=== PATIENT | male | born 1980 ===

== ENCOUNTER 2020-03-29 15:52 | Emergency (ER) | payer SELFPAY ==
--- NOTE | 2020-03-29 16:38 | Event Note ---
ED Screening Note Date of service: 03/29/20 Time: 16:37 ED Screening Note: Patient complains of urinary frequency, fatigue, and generalized body aches Sent here from [facility] due to elevated blood sugar History of diabetes, states he has not been on medication for 1 year Denies chest pain or shortness of breath This initial assessment/diagnostic orders/clinical plan/treatment(s) is/are subject to change based on patients health status, clinical progression and re- assessment by fellow clinical providers in the ED. Further treatment and workup at subsequent clinical providers discretion. Patient/guardian urged not to elope from the ED as their condition may be serious if not clinically assessed and managed. Initial orders include: Labs
[2020-03-29 17:45] LABS: Alanine Aminotransferase 18 units/L (7-56); Blood Urea Nitrogen 17 mg/dL (9-20); Calcium 9.3 mg/dL (8.4-10.2); Hemolysis Index 19
[2020-03-29 17:52] LABS: Basophils # (Auto) 0.1 K/mm3 (0.0-0.1); Basophils % (Auto) 0.7 % (0.0-1.8); Eosinophils # (Auto) 0.1 K/mm3 (0.0-0.4); Eosinophils % (Auto) 0.8 % (0.0-4.3); Hematocrit 48.3 % (35.5-45.6); Hemoglobin 15.9 gm/dl (11.8-15.2); Lymphocytes # (Auto) 2.1 K/mm3 (1.2-5.4); Lymphocytes % (Auto) 25.9 % (13.4-35.0); Mean Corpuscular HGB Conc 33 % (32-34); Mean Corpuscular Volume 84 fl (84-94); Monocytes # (Auto) 0.5 K/mm3 (0.0-0.8); Monocytes % (Auto) 5.6 % (0.0-7.3); Platelet Count 195 K/mm3 (140-440); Red Blood Count 5.75 M/mm3 (3.65-5.03); Red Cell Distribution Width 13.7 % (13.2-15.2)
[2020-03-29 17:58] LABS: BUN/Creatinine Ratio 24
[2020-03-30] MEDS ORDERED: SODIUM CHLORIDE 0.9% 1000 ML 1,000 ML IV ONE ×2 (01:42)
[2020-03-30] MEDS ORDERED: INSULIN REGULAR, HUMAN 100 UNIT/ML 3ML VIAL IV ONE (01:43)
--- NOTE | 2020-03-30 01:48 | Emergency Department Report ---
ED General Adult HPI - General Chief complaint: Hyperglycemia Stated complaint: HIGH BLOOD SUGAR Time Seen by Provider: 03/29/20 16:36 Source: patient Mode of arrival: Ambulatory Limitations: No Limitations - History of Present Illness Initial comments: 39-year-old male, history of hypertension and diabetes, presents to ED with elevated blood sugar. Patient states he was diagnosed with diabetes 2 years ago. States he took medication for 1 year, however he has been off of his meds for the past year. He reports he has been having headaches, increased thirst, increased urination for about 1 month. He was seen in urgent care, had his glucose checked, and was told to come to the ED because it was so elevated. Patient denies any nausea or vomiting, fever, cough, shortness of breath. -: month(s) (1) Consistency: constant Improves with: none Worsens with: none Associated Symptoms: headaches. denies: fever/chills, nausea/vomiting, shortness of breath - Related Data Previous Rx's Medication Instructions Recorded Last Taken Type metFORMIN [Glucophage] 500 mg PO BID #60 tablet 03/30/20 Unknown Rx Allergies Allergy/AdvReac Type Severity Reaction Status Date / Time No Known Allergies Allergy Unverified 03/29/20 16:38 ED Review of Systems ROS: Stated complaint: HIGH BLOOD SUGAR Other details as noted in HPI Comment: All other systems reviewed and negative Constitutional: denies: fever Respiratory: denies: cough, shortness of breath Endocrine: increased thirst, increased urine Gastrointestinal: denies: nausea, vomiting Neurological: headache ED Past Medical Hx - Past Medical History Previous Medical History?: Yes Hx Hypertension: Yes Hx Diabetes: Yes - Medications Home Medications: Home Medications Medication Instructions Recorded Confirmed Last Taken Type metFORMIN [Glucophage] 500 mg PO BID #60 tablet 03/30/20 Unknown Rx ED Physical Exam - General Limitations: No Limitations General appearance: alert, in no apparent distress - Head Head exam: Present: atraumatic, normocephalic - Eye Eye exam: Present: normal appearance, EOMI - ENT ENT exam: Present: mucous membranes moist - Neck Neck exam: Present: normal inspection - Respiratory Respiratory exam: Present: normal lung sounds bilaterally. Absent: respiratory distress - Cardiovascular Cardiovascular Exam: Present: regular rate, normal rhythm - GI/Abdominal GI/Abdominal exam: Present: soft. Absent: distended, tenderness - Extremities Exam Extremities exam: Present: normal inspection - Neurological Exam Neurological exam: Present: alert, oriented X3 - Psychiatric Psychiatric exam: Present: normal affect, normal mood - Skin Skin exam: Present: warm, dry, intact, normal color ED Course Vital Signs 03/30/20 03/30/20 03/30/20 01:50 02:15 02:30 Temperature 97.6 F Pulse Rate 84 80 77 Respiratory 18 19 16 Rate Blood Pressure 127/75 130/77 Blood Pressure 123/81 [Left] O2 Sat by Pulse 96 97 97 Oximetry 03/30/20 03/30/20 03/30/20 02:45 03:00 03:15 Temperature Pulse Rate 85 75 76 Respiratory 12 15 14 Rate Blood Pressure 129/67 111/68 117/67 Blood Pressure [Left] O2 Sat by Pulse 99 99 99 Oximetry 03/30/20 03/30/20 03/30/20 03:30 03:45 04:00 Temperature Pulse Rate 74 86 78 Respiratory 15 14 15 Rate Blood Pressure 124/66 131/68 121/71 Blood Pressure [Left] O2 Sat by Pulse 100 96 98 Oximetry ED Medical Decision Making - Lab Data Result diagrams: 03/29/20 17:10 03/29/20 17:10 - Medical Decision Making 39-year-old male, noncompliant with diabetic medications, presents to ED for elevated glucose. Initial glucose of 693. Patient does not appear to be in DKA. 2 L normal saline given along with 10 units of insulin. Repeat glucose is 257. Patient is feeling much better at this time. Will discharge home. Outpatient follow-up advised, return precautions given. - Differential Diagnosis Hyperglycemia, DKA Critical care attestation.: If time is entered above; I have spent that time in minutes in the direct care of this critically ill patient, excluding procedure time. ED Disposition Clinical Impression: Hyperglycemia due to type 2 diabetes mellitus Disposition: DC-01 TO HOME OR SELFCARE Is pt being admited?: No Condition: Stable Instructions: Type 2 Diabetes Mellitus, Self Care, Adult, Diabetes Mellitus Type 2 in Adults (ED) Prescriptions: metFORMIN [Glucophage] 500 mg PO BID #60 tablet Referrals: [facility] [Provider Group] - 3-[address] [facility] [place] [Outside] - 3-5 Days Time of Disposition: 04:03 Print Language: MALAGASY
[2020-03-30 04:13] VITALS: BP 121/71
== END 2020-03-30 04:15 | disposition home or self-care (01) ==
LOC: ED 15:52
DX: E11.65 Type 2 diabetes mellitus with hyperglycemia (principal); I10 Essential (primary) hypertension; Z79.899 Other long term (current) drug therapy
CPT/HCPCS: 36415; 80053; 82805; 82962; 85025; 96361; 96374; 99283; J7030; J1815

== ENCOUNTER 2020-04-06 11:50 | Emergency (ER) | payer SELFPAY ==
--- NOTE | 2020-04-06 12:04 | Event Note ---
ED Screening Note Date of service: 04/06/20 Time: 12:03 ED Screening Note: Patient presents for hyperglycemia POC glucose 506 here in ED This initial assessment/diagnostic orders/clinical plan/treatment(s) is/are subject to change based on patients health status, clinical progression and re-assessment by fellow clinical providers in the ED. Further treatment and workup at subsequent clinical providers discretion. Patient/guardian urged not to elope from the ED as their condition may be serious if not clinically assessed and managed. Initial orders include: Labs
[2020-04-06 12:51] LABS: Basophils # (Auto) 0.1 K/mm3 (0.0-0.1); Eosinophils # (Auto) 0.1 K/mm3 (0.0-0.4); Eosinophils % (Auto) 1.5 % (0.0-4.3); Hematocrit 45.7 % (35.5-45.6); Hemoglobin 15.5 gm/dl (11.8-15.2); Lymphocytes # (Auto) 2.1 K/mm3 (1.2-5.4); Lymphocytes % (Auto) 32.7 % (13.4-35.0); Mean Corpuscular HGB Conc 34 % (32-34); Mean Corpuscular Volume 84 fl (84-94); Monocytes # (Auto) 0.5 K/mm3 (0.0-0.8); Monocytes % (Auto) 7.6 % (0.0-7.3); Platelet Count 191 K/mm3 (140-440); Red Blood Count 5.46 M/mm3 (3.65-5.03); Red Cell Distribution Width 13.6 % (13.2-15.2)
[2020-04-06 13:02] LABS: Alanine Aminotransferase 20 units/L (7-56); Albumin 3.9 g/dL (3.9-5); BUN/Creatinine Ratio 14; Blood Urea Nitrogen 13 mg/dL (9-20); Hemolysis Index 12
[2020-04-06 13:07] LABS: Bilirubin,Urine NEG (Negative); Blood,Urine NEG (Negative); Color,Urine Colorless (Yellow); Mucus,Urine FEW /HPF; Protein,Urine <15 mg/dL mg/dL (Negative); RBC,Urine < 1.0 /HPF (0.0-6.0); Urobilinogen,Urine < 2.0 mg/dL (<2.0); WBC,Urine < 1.0 /HPF (0.0-6.0)
[2020-04-06] MEDS ORDERED: INSULIN REGULAR, HUMAN 100 UNIT/ML 3ML VIAL IV ONE (14:03)
[2020-04-06] MEDS ORDERED: SODIUM CHLORIDE 0.9% 1000 ML 1,000 ML IV ONE ×2 (14:03)
[2020-04-06] MEDS ORDERED: INSULIN REGULAR, HUMAN 100 UNITS/1 ML ONE (14:17)
--- NOTE | 2020-04-06 14:31 | XRay Report ---
CHEST 1 VIEW INDICATION: Chest Pain COMPARISON: None FINDINGS: Support devices: None Heart: Normal Lungs/Pleura: No acute pulmonary or pleural findings. IMPRESSION: 1. No acute disease. Signer Name: Arash Pérez MD Signed: 04/06/2020 2:27 PM Workstation Name: [id number]
--- NOTE | 2020-04-06 15:56 | Emergency Department Report ---
ED Chest Pain HPI - General Chief Complaint: Hyperglycemia Stated Complaint: HIGH BLOOD SUGAR Time Seen by Provider: 04/06/20 12:03 Source: patient Mode of arrival: Ambulatory Limitations: Language Barrier - History of Present Illness Initial Comments: Chief complaint: Chest pressure headache heart racing HPI this is a 39-year-old male with history of new onset diabetes mellitus recently diagnosed at this hospital on March 29 last week. Patient has had chest pressure since Tuesday. Dull headache. Chest pressure seems to be associated with eating. Intermittent. He denies fever. Denies cough. Denies shortness of breath. Denies sick contact. He has been compliant with Metformin 500 mg twice daily. He has yet to follow-up with his primary physician due to the holiday season. No family history of cardiac disease. Patient has mild dull headache. Fleeting headache. Gradual onset. Spontaneously resolved. I used [employer] [place] line shipping technician via phone to obtain history MD Complaint: chest pain -: Gradual, days(s) (4 days ago on Tuesday) Onset: during rest Pain Location: substernal Pain Radiation: none Severity: moderate Severity scale (0 -10): 5 Quality: pressure Consistency: constant Improves With: nothing Worsens With: eating re: nausea - Related Data Previous Rx's Medication Instructions Recorded Last Taken Type metFORMIN [Glucophage] 500 mg PO BID #60 tablet 03/30/20 Unknown Rx Metformin HCl [metFORMIN] 1,000 mg PO BID #60 tablet 04/06/20 Unknown Rx Allergies Allergy/AdvReac Type Severity Reaction Status Date / Time No Known Allergies Allergy Unverified 03/29/20 16:38 Heart Score - HEART Score History: Slightly suspicious EKG: Normal Age: < 45 Risk factors: 1-2 risk factors Troponin: < normal limit HEART Score: 1 ED Review of Systems ROS: Stated complaint: HIGH BLOOD SUGAR Other details as noted in HPI Comment: All other systems reviewed and negative Constitutional: malaise. denies: fever Respiratory: denies: cough, shortness of breath Cardiovascular: chest pain, palpitations Neurological: headache ED Past Medical Hx - Past Medical History Previous Medical History?: Yes Hx Hypertension: Yes Hx Diabetes: Yes - Family History Family history: other (No family history of cardiac disease) - Social History Smoking Status: Never Smoker Substance Use Type: None - Medications Home Medications: Home Medications Medication Instructions Recorded Confirmed Last Taken Type metFORMIN [Glucophage] 500 mg PO BID #60 tablet 03/30/20 Unknown Rx Metformin HCl [metFORMIN] 1,000 mg PO BID #60 tablet 04/06/20 Unknown Rx ED Physical Exam - General Limitations: Language Barrier General appearance: alert, in no apparent distress - Head Head exam: Present: atraumatic, normocephalic - Eye Eye exam: Present: normal appearance - ENT ENT exam: Present: mucous membranes moist - Neck Neck exam: Present: normal inspection, full ROM - Respiratory Respiratory exam: Present: normal lung sounds bilaterally. Absent: respiratory distress, wheezes, rales - Cardiovascular Cardiovascular Exam: Present: regular rate, normal rhythm, normal heart sounds. Absent: systolic murmur, diastolic murmur, rubs, gallop - GI/Abdominal GI/Abdominal exam: Present: soft, normal bowel sounds. Absent: distended, tenderness, guarding, rebound - Rectal Rectal exam: Present: deferred - Extremities Exam Extremities exam: Present: normal inspection - Back Exam Back exam: Present: normal inspection - Neurological Exam Neurological exam: Present: alert, oriented X3 - Psychiatric Psychiatric exam: Present: normal affect, normal mood - Skin Skin exam: Present: warm, dry, intact, normal color. Absent: rash ED Course Vital Signs 04/06/20 04/06/20 04/06/20 12:00 14:15 14:34 Temperature 98.1 F 98.2 F Pulse Rate 89 65 Respiratory 18 17 Rate Blood Pressure 121/72 Blood Pressure 146/77 [Left] O2 Sat by Pulse 96 98 98 Oximetry ED Medical Decision Making - Lab Data Result diagrams: 04/06/20 12:21 04/06/20 12:21 Laboratory Results - last 24 hr 04/06/20 04/06/20 04/06/20 12:02 12:21 12:21 WBC 6.5 RBC 5.46 H Hgb 15.5 H Hct 45.7 H MCV 84 MCH 28 MCHC 34 RDW 13.6 Plt Count 191 Lymph % (Auto) 32.7 [place] % (Auto) 7.6 H Eos % (Auto) 1.5 Baso % (Auto) 1.0 Lymph # (Auto) 2.1 [place] # (Auto) 0.5 Eos # (Auto) 0.1 Baso # (Auto) 0.1 Seg Neutrophils % 57.2 Seg Neutrophils # 3.7 VBG pH Sodium 130 L Potassium 4.3 Chloride 96.4 L Carbon Dioxide 25 Anion Gap 13 BUN 13 Creatinine 0.9 Estimated GFR > 60 BUN/Creatinine Ratio 14 Glucose 576 H* POC Glucose 506 H Calcium 9.0 Total Bilirubin 0.30 AST 15 ALT 20 Alkaline Phosphatase 79 Troponin T Total Protein 7.1 Albumin 3.9 Albumin/Globulin Ratio 1.2 Urine Color Urine Turbidity Urine pH Ur Specific [place] Urine Protein Urine Glucose (UA) Urine Ketones Urine Blood Urine Nitrite Urine Bilirubin Urine Urobilinogen Ur Leukocyte Esterase Urine WBC (Auto) Urine RBC (Auto) U Epithel Cells (Auto) Urine Mucus 04/06/20 04/06/20 04/06/20 12:21 12:21 Unknown WBC RBC Hgb Hct MCV MCH MCHC RDW Plt Count Lymph % (Auto) [place] % (Auto) Eos % (Auto) Baso % (Auto) Lymph # (Auto) [place] # (Auto) Eos # (Auto) Baso # (Auto) Seg Neutrophils % Seg Neutrophils # VBG pH 7.366 Sodium Potassium Chloride Carbon Dioxide Anion Gap BUN Creatinine Estimated GFR BUN/Creatinine Ratio Glucose POC Glucose Calcium Total Bilirubin AST ALT Alkaline Phosphatase Troponin T < 0.010 Total Protein Albumin Albumin/Globulin Ratio Urine Color Colorless Urine Turbidity Clear Urine pH 7.0 Ur Specific [place] 1.029 Urine Protein <15 mg/dl Urine Glucose (UA) >=500 Urine Ketones Tr Urine Blood Neg Urine Nitrite Neg Urine Bilirubin Neg Urine Urobilinogen < 2.0 Ur Leukocyte Esterase Neg Urine WBC (Auto) < 1.0 Urine RBC (Auto) < 1.0 U Epithel Cells (Auto) < 1.0 Urine Mucus Few - EKG Data -: EKG Interpreted by Ak EKG shows normal: sinus rhythm, axis, intervals, QRS complexes, ST-T waves Rate: tachycardia - EKG Data Interpretation: normal EKG (With exception of tachycardia) 04/06/20 15:54 EKG obtained 1346 EKG interpreted by al Normal sinus rhythm normal rate normal axis normal intervals no ST elevation no ST-T signs of ischemia normal EKG rate 70 bpm - Radiology Data Radiology results: report reviewed, image reviewed CHEST 1 VIEW INDICATION: Chest Pain COMPARISON: None FINDINGS: Support devices: None Heart: Normal Lungs/Pleura: No acute pulmonary or pleural findings. IMPRESSION: 1. No acute disease. - Medical Decision Making 1. Chest pressure headache: Differential diagnosis includes ACS, heart score 2. With tachycardia and recent hospital evaluation will rule out pulmonary embolism with CT angiogram. With constellation of symptoms of generalized malaise chest pressure headache must consider COVID-19 infection. Chest x-ray negative for pneumonia. Patient is low risk for ACS. I have referred him to [facility] [facility] for outpatient cardiac evaluation. 2. Acute hyperglycemia new diagnosis of diabetes mellitus: I have increase his Metformin dose to 500 mg twice daily. He communicated understanding that he will see his PCP for additional management. Extensive education and instructio ns were provided using the [employer] line shipping technician. Critical care attestation.: If time is entered above; I have spent that time in minutes in the direct care of this critically ill patient, excluding procedure time. ED Disposition Clinical Impression: Chest pain, Hyperglycemia due to type 2 diabetes mellitus Is pt being admited?: No Does the pt Need Aspirin: No Condition: Stable Instructions: Chest Pain (ED), Diabetes Mellitus Type 2 in Adults (ED), Nonspecific Chest Pain, Adult, Hyperglycemia, [id number] Additional Instructions: Llame al nmero que aparece a continuacin para consultar a un cardilogo. Deber asegurarse de que linda corazn est mervin. Prescriptions: Metformin HCl [metFORMIN] 1,000 mg PO BID #60 tablet Referrals: JACQUELINE GUTIÉRREZ MD [Staff Physician] - 3-5 Days
[2020-04-06] MEDS ORDERED: MORPHINE 4 MG/1 ML INJ IV ONE (16:05)
[2020-04-06] MEDS ORDERED: ONDANSETRON 4 MG/2 ML INJ IV ONE (16:05)
[2020-04-06] MEDS ORDERED: PANTOPRAZOLE 40 MG INJ IV ONE (16:05)
--- NOTE | 2020-04-06 17:04 | Cat Scan Report ---
CT angio chest INDICATION: MAIN. TECHNIQUE: All CT scans at this location are performed using CT dose reduction for ALARA by means of automated e xposure control. 3 plane MIP and/or 3-D reconstructions were produced COMPARISON: None available. FINDINGS: Mediastinum, kee and axillae are negative. No pleural fluid. No significant parenchymal disease. No evidence of pulmonary embolus. IMPRESSION: 1. Negative for pulmonary embolus or other acute abnormality. Signer Name: Arash Pérez MD Signed: 04/06/2020 5:00 PM Workstation Name: [id number]
[2020-04-06 17:43] VITALS: BP 133/63
== END 2020-04-06 17:44 | disposition home or self-care (01) ==
LOC: ED 11:50
DX: E11.65 Type 2 diabetes mellitus with hyperglycemia (principal); R07.9 Chest pain, unspecified; I10 Essential (primary) hypertension; Z79.899 Other long term (current) drug therapy
CPT/HCPCS: 36415; 71045; 71275; 80053; 81001; 82805; 82962; 84484; 85025; 93005; 96361; 96374; 96375; 99284; C9113; J7030; Q9967; J1815; J2270; J2405